=== PATIENT | male | born 1960 | race Caucasian/White ===

== ENCOUNTER → 2021-07-03 10:20 | Outpatient (CLI) | payer BC, SELFPAY ==
[2021-07-03 22:44] LABS: Influenza A QL RT-PCR Negative (Negative); Influenza B QL RT-PCR Negative (Negative); SARS-CoV-2 RNA PCR Positive
== END ==
PROVIDERS: PCP Family Medicine; Visit Provider Family Medicine
DX: U07.1 COVID-19 (principal); R50.9 Fever, unspecified
CPT/HCPCS: 87502; C9803; U0003; U0005

== ENCOUNTER 2023-10-23 00:04 | Day surgery (SDC) | payer BC, SELFPAY ==
[2023-10-09 09:45] VITALS: BMI 28.0
[2023-10-23 08:41] VITALS: BP 133/62; PULSE 56; RESP 17; TEMP 36.3; O2SAT 97; BMI 27.6
[2023-10-23] MEDS: LACTATED RINGERS 1,000 ML 150 ML IV CONT (08:57)
--- NOTE | 2023-10-23 09:57 | PM.HPGS ---
History of Present Illness History of Present Illness Consent: Risks, benefits, and alternatives have been discussed and questions answered. Patient agrees to proceed with procedure. Chief complaint: Neoplasm screening Narrative: Earl Mccann III is a 63 year old male here for screening colonoscopy, last one more than 10 years ago Review of Systems Review of Systems: All systems reviewed & are unremarkable except as noted in HPI and below PMFSH Past Medical History Medical History COVID-19 HTN (hypertension), benign Overweight (BMI 25.0-29.9) Suspected COVID-19 virus infection Family History Family History (Updated 07/27/23 @ 10:05 by Teresa Ang MA) Father Family history of chronic obstructive pulmonary disease Mother Memory loss Other Diabetes mellitus Family history of hypercholesterolemia Hypertension Social History Social History Smoking packs per day: 1 Smoking cigarettes per day: 20.0 Smoking status: Former smoker Tobacco type: cigarettes Alcohol intake: current Drinks per week: 1 Substance use type: does not use Lack of Transportation: No Lack of Food: Never True Current Housing: I Have Housing Concerned About Future Housing: No Difficulty Paying Gas/Electric Bills: No Difficulty Paying for Meds: No Currently Unemployed: No Education: Bachelor's Degree Difficulty w/ Childcare or Family Care: No Living arrangements: other Additional living arrangements comments: with sp Meds Home Medications and Allergies Home Medications Medication Instructions Recorded Confirmed Type multivitamin 1 tablet PO DAILY 11/21/20 10/23/23 History clonidine HCl 0.1 mg tablet 0.05 mg PO DAILY #45 tabs 04/01/23 10/23/23 Rx spironolactone 25 mg tablet See Rx Instructions .Route 07/17/23 10/23/23 Rx .COMPLEX #90 tabs aspirin 81 mg tablet,delayed 81 mg PO .q48 07/27/23 10/23/23 History release aliskiren 300 mg tablet See Rx Instructions .Route 09/11/23 10/23/23 Rx .COMPLEX #90 tabs amlodipine 5 mg tablet (Norvasc) 5 mg PO DAILY #90 tabs 10/05/23 10/23/23 Rx Allergies Allergy/AdvReac Type Severity Reaction Status Date / Time bee venom protein (honey bee) Allergy Intermediate Swelling Verified 10/23/23 08:40 amoxicillin Allergy Unknown Unknown Verified 10/23/23 08:40 doxycycline Allergy Unknown fatigue Verified 10/23/23 08:40 Penicillins Allergy Unknown Unknown Verified 10/23/23 08:40 poison manpreet extract Allergy Unknown Skin Verified 10/23/23 08:40 Reaction Sulfa (Sulfonamide Allergy Unknown Unknown Verified 10/23/23 08:40 Antibiotics) sulfamethizole Allergy Unknown Unknown Verified 10/23/23 08:40 Vital Signs Vital Signs - 24 hr 10/23/23 08:41 Temperature 97.3 F L Pulse Rate 56 L Respiratory Rate 17 Blood Pressure 133/62 Pulse Oximetry 97 Oxygen Delivery Room Air Exam Const: General: comfortable and no acute distress HENMT: Face/Nose/Sinus: Normal nares present Eyes: General: appearance normal, both eyes and all related structures Neck: Neck: no JVD Resp: Auscultation: clear to auscultation bilaterally Cardio: Rate: regular rate Rhythm: regular rhythm GI: Inspection: non-distended GI Palp: Yes Soft to palpation Skin: General skin exam: normal color Neuro: General: gait normal Speech: normal speech Extrem: General: normal to inspection Psych: Mental Status: mental status grossly normal Assessment and Plan Assessment and plan (1) Colon cancer screening: Code(s): Z12.11 - Encounter for screening for malignant neoplasm of colon Status: Acute Assessment and Plan: colonoscopy
[2023-10-23 10:22] VITALS: BP 104/70; PULSE 52; RESP 12; O2SAT 97
[2023-10-23 10:32] VITALS: BP 111/81; PULSE 54; RESP 17; O2SAT 97
[2023-10-23 10:42] VITALS: BP 112/83; PULSE 55; RESP 19; O2SAT 98
--- NOTE | 2023-10-27 15:20 | WPDANESEPPF ---
Anes - Initial Pre Proc Eval Procedure: Operation Date: 10/23/23 10:00 Proposed Procedures p Screening Colonoscopy - Matteo Casey MD Date/Time: 10/27/23 15:20 Surgeon: Matteo Casey MD Pre Op Diagnosis: Neoplasm screening Patient Data Age: 63 Gender: M Height: 1.78 m Weight: 87.4 kg Last Vital Signs Temp 97.3 F L 10/23/23 08:41 Pulse 55 L 10/23/23 10:42 Resp 19 10/23/23 10:42 BP 112/83 10/23/23 10:42 Pulse Ox 98 10/23/23 10:42 O2 Del Method Room Air 10/23/23 10:42 Allergies Allergy/AdvReac Type Severity Reaction Status Date / Time bee venom protein (honey bee) Allergy Intermediate Swelling Verified 10/23/23 08:40 amoxicillin Allergy Unknown Unknown Verified 10/23/23 08:40 doxycycline Allergy Unknown fatigue Verified 10/23/23 08:40 Penicillins Allergy Unknown Unknown Verified 10/23/23 08:40 poison manpreet extract Allergy Unknown Skin Verified 10/23/23 08:40 Reaction Sulfa (Sulfonamide Allergy Unknown Unknown Verified 10/23/23 08:40 Antibiotics) sulfamethizole Allergy Unknown Unknown Verified 10/23/23 08:40 Home Medications Medication Instructions Recorded Confirmed Type multivitamin 1 tablet PO DAILY 11/21/20 10/23/23 History clonidine HCl 0.1 mg tablet 0.05 mg PO DAILY #45 tabs 04/01/23 10/23/23 Rx spironolactone 25 mg tablet See Rx Instructions .Route 07/17/23 10/23/23 Rx .COMPLEX #90 tabs aspirin 81 mg tablet,delayed 81 mg PO .q48 07/27/23 10/23/23 History release aliskiren 300 mg tablet See Rx Instructions .Route 09/11/23 10/23/23 Rx .COMPLEX #90 tabs amlodipine 5 mg tablet (Norvasc) 5 mg PO DAILY #90 tabs 10/05/23 10/23/23 Rx Patient hx anesthesia problems: none Family hx anesthesia problems: none Results Review: All pre-operative results and documents have been reviewed as part of the pre-operative evaluation. [facility] Past Medical History Medical History COVID-19 HTN (hypertension), benign Overweight (BMI 25.0-29.9) Suspected COVID-19 virus infection Family History Family History (Updated 07/27/23 @ 10:05 by Teresa Ang MA) Father Family history of chronic obstructive pulmonary disease Mother Memory loss Other Diabetes mellitus Family history of hypercholesterolemia Hypertension Social History Social History Smoking packs per day: 1 Smoking cigarettes per day: 20.0 Smoking status: Former smoker Tobacco type: cigarettes Alcohol intake: current Drinks per week: 1 Substance use type: does not use Lack of Transportation: No Lack of Food: Never True Current Housing: I Have Housing Concerned About Future Housing: No Difficulty Paying Gas/Electric Bills: No Difficulty Paying for Meds: No Currently Unemployed: No Education: Bachelor's Degree Difficulty w/ Childcare or Family Care: No Living arrangements: other Additional living arrangements comments: with susi Christopher Final PreProcedure Day of Procedure 10/27/23 15:20 Patient weight: normal Heart: regular rate and rhythm Lungs: clear to auscultation Airway: Mallampati scale class II Neurological: alert and oriented Last oral intake: >/= 8 hours ASA classification: II Emergent: no Anesthetic plan: proceed Anesthesia type and monitoring: general GIVS and standard monitoring Results Review: All pre-operative results and documents have been reviewed as part of the pre-operative evaluation. Informed Consent: The patient's anesthetic plan and its attendant risks and benefits were discussed with the patient/family/POA. Questions were solicited and answers provided to the satisfaction of the patient/family/POA.
== END 2023-10-23 10:47 | disposition home or self-care (01) ==
PROVIDERS: PCP Family Medicine; Visit Provider Internal Medicine Gastroenterology
PROC: 0DJD8ZZ Inspection of Lower Intestinal Tract, Via Natural or Artificial Opening Endoscopic (ICD-10-PCS; CPT 45378; principal; 2023-10-23 10:00)
DX: Z12.11 Encounter for screening for malignant neoplasm of colon (principal); K63.5 Polyp of colon; K57.30 Diverticulosis of large intestine without perforation or abscess without bleeding; K64.8 Other hemorrhoids; I10 Essential (primary) hypertension; Z87.891 Personal history of nicotine dependence; Z79.82 Long term (current) use of aspirin
CPT/HCPCS: 45380; 88305; J2704; J7120